=== PATIENT | female | born 1975 | race Caucasian/White ===

== ENCOUNTER 2022-07-16 14:04 | Emergency (ER) | payer MEDICAID ==
[~2022-07-16] VITALS: Ht 160 cm; Wt 72.6 kg
[~2022-07-16 14:04] MED LIST: LOSA25TA3 PO
[2022-07-16 14:06] VITALS: BP_SYST 154
[2022-07-16] MEDS ORDERED: VIS25 PO (16:26)
[2022-07-16 16:33] LABS: BASOPHILS # (AUTO) 0.1 K/uL (0.0-0.2); BASOPHILS % (AUTO) 0.9 % (0.0-2.0); EOSINOPHILS # (AUTO) 0.1 K/uL (0.0-0.4); EOSINOPHILS % (AUTO) 0.6 % (0.0-4.0); HEMATOCRIT 42.3 % (36-48); HEMOGLOBIN 14.2 g/dL (12.0-16.0); LYMPHOCYTES # (AUTO) 1.9 K/uL (1.0-5.5); LYMPHOCYTES % (AUTO) 18.5 % (20.5-51.5); MEAN CORPUSCULAR HEMOGLOBIN 29 pg (27-31); MEAN CORPUSCULAR HGB CONC 34 % (32-36); MEAN CORPUSCULAR VOLUME 87 fL (79.0-98.0); MONOCYTES # (AUTO) 0.8 K/uL (0.0-1.0); MONOCYTES % (AUTO) 8.4 % (1.7-9.3); NEUTROPHILS # (AUTO) 7.2 K/uL (1.8-7.7); NEUTROPHILS % (AUTO) 71.6 % (40.0-70.0); PLATELET COUNT (AUTO) 227 K/uL (130-430); RED BLOOD CELL COUNT(AUTO) 4.89 MIL/uL (4.2-6.2); RED CELL DISTRIBUTION WIDTH 13.7 % (9.0-15.0); WHITE BLOOD COUNT (AUTO) 10.1 K/uL (4.8-10.8)
[2022-07-16 16:37] LABS: ANION GAP 4 (5-15); CALCIUM 9.9 mg/dL (8.4-11.0); CHLORIDE 104 mmol/L (98-107); CREATININE 0.84 mg/dL (0.55-1.30); GLUCOSE 97 mg/dL (70-99); UREA NITROGEN, BLOOD 14 mg/dL (8-21)
[2022-07-16 16:38] LABS: GFR AFRICAN AMERICAN 93 mL/min (>90)
[2022-07-16 16:49] LABS: ALANINE AMINOTRANSFERASE 16 U/L (12-78); ALBUMIN 3.8 g/dL (3.4-4.8); ASPARTATE AMINOTRANSFERASE 11 U/L (10-37); TOTAL BILIRUBIN 0.2 mg/dL (0.0-1.0)
[2022-07-16 16:56] VITALS: BP_SYST 122
== END 2022-07-16 16:57 | disposition home or self-care (01) ==
LOC: SED 14:04
DX: F41.9 Anxiety disorder, unspecified (principal); R20.2 Paresthesia of skin; I10 Essential (primary) hypertension; Z88.6 Allergy status to analgesic agent; Z79.899 Other long term (current) drug therapy
CPT/HCPCS: 36415; 80053; 84484; 85025; 99283

== ENCOUNTER 2023-12-09 00:18 | Emergency (ER) | payer MEDICAID ==
[~2023-12-09] VITALS: Ht 160 cm; Wt 74.8 kg
[~2023-12-09 00:18] MED LIST changes: +LOSA-412 PO; -LOSA25TA3 PO; +VIS25 PO
[2023-12-09 00:22] VITALS: BP_SYST 152; PULSE 121; RESP 18; TEMP 99.5; O2SAT 97
[2023-12-09 01:01] LABS: BASOPHILS # (AUTO) 0.1 K/uL (0.0-0.2); BASOPHILS % (AUTO) 0.7 % (0.0-2.0); EOSINOPHILS # (AUTO) 0.1 K/uL (0.0-0.4); EOSINOPHILS % (AUTO) 1.2 % (0.0-4.0); HEMATOCRIT 38.1 % (36-48); HEMOGLOBIN 12.8 g/dL (12.0-16.0); LYMPHOCYTES # (AUTO) 3.2 K/uL (1.0-5.5); LYMPHOCYTES % (AUTO) 30.9 % (20.5-51.5); MEAN CORPUSCULAR HEMOGLOBIN 29 pg (27-31); MEAN CORPUSCULAR HGB CONC 34 % (32-36); MEAN CORPUSCULAR VOLUME 86 fL (79.0-98.0); MONOCYTES # (AUTO) 1.4 K/uL (0.0-1.0); MONOCYTES % (AUTO) 13.2 % (1.7-9.3); NEUTROPHILS # (AUTO) 5.7 K/uL (1.8-7.7); PLATELET COUNT (AUTO) 252 K/uL (130-430); RED BLOOD CELL COUNT(AUTO) 4.42 MIL/uL (4.2-6.2); RED CELL DISTRIBUTION WIDTH 12.8 % (9.0-15.0); WHITE BLOOD COUNT (AUTO) 10.5 K/uL (4.8-10.8)
[2023-12-09 01:14] LABS: BILIRUBIN,URINE NEGATIVE (NEGATIVE); CLARITY/URINE CLEAR (CLEAR); COLOR,URINE YELLOW (YELLOW); GLUCOSE,URINE NEGATIVE (NEGATIVE); KETONES,URINE NEGATIVE (NEGATIVE); LEUKOCYTE ESTERASE ,URINE 1+ (NEGATIVE); NITRITE, URINE NEGATIVE (NEGATIVE); PROTEIN URINE NEGATIVE (NEGATIVE); UROBILINOGEN,URINE 0.2 (0.2-1.0)
[2023-12-09 01:22] LABS: BLOOD, URINE TRACE (NEGATIVE)
[2023-12-09 01:29] LABS: BACTERIA,URINE RARE /HPF (None Seen); RBC,URINE 0-3 /HPF (0-3); WBC,URINE 0-3 /HPF (0-3)
[2023-12-09 01:31] LABS: ANION GAP 6 (5-15); CALCIUM 9.3 mg/dL (8.4-11.0); CARBON DIOXIDE 29 mmol/L (23-29); CHLORIDE 106 mmol/L (98-107); CREATININE 0.72 mg/dL (0.55-1.30); GFR AFRICAN AMERICAN 110 mL/min (>90); GFR NON AFRICAN-AMERICAN 91 mL/min (>90); GLUCOSE 114 mg/dL (74-106); POTASSIUM 3.9 mmol/L (3.5-5.1); SODIUM SERUM 141 mmol/L (136-145); UREA NITROGEN, BLOOD 18 mg/dL (8-21)
[2023-12-09 02:42] VITALS: BP_SYST 127; PULSE 101; RESP 18; TEMP 82; O2SAT 99
== END 2023-12-09 02:40 | disposition home or self-care (01) ==
LOC: SED 00:18
DX: R00.2 Palpitations (principal); I10 Essential (primary) hypertension; Z88.6 Allergy status to analgesic agent; Z79.899 Other long term (current) drug therapy
CPT/HCPCS: 36415; 80048; 81000; 81001; 81015; 84484; 85025; 87086; 93005; 99284